=== PATIENT | male | born 2000 | race Caucasian/White ===

== ENCOUNTER → 2020-11-16 | Outpatient (CLI) | payer BC ==
[2020-11-16 18:52] LABS: HCT 47.7 % (39.6-50.0); HGB 15.2 g/dL (13.0-17.0); MCH 25.7 pg (27.0-32.0); MCHC 31.9 g/dL (32.0-37.0); MCV 80.6 fL (80.0-97.0); Mean Platelet Volume 10.7 fL (9.5-12.2); Platelet Count 292 X 10*3/uL (140-440); RBC 5.92 X 10*6/uL (4.40-5.60); RDW 13.1 % (11.5-14.5)
[2020-11-16 21:01] LABS: Erythrocyte Sedimentation Rate 5 mm/Hr (0-15)
[2020-11-16 21:24] LABS: Gliadin AB IgA, Deaminated NEGATIVE (NEGATIVE); Gliadin AB IgA, Unit 4.4 U/mL; Gliadin AB IgG, Deaminated NEGATIVE (NEGATIVE)
[2020-11-17 04:12] LABS: African American GFR (CKD) 150.1 (60.0-200.0); Albumin 4.9 g/dL (3.80-4.90); Albumin/Globulin Ratio 1.63 (1.60-3.17); Anion Gap 16.1 mmol/L (4.00-12.00); BUN/Creat Ratio 16.25 Ratio (12.00-20.00); Calcium 10.2 mg/dL (8.7-10.3); Carbon Dioxide 21.9 mmol/L (21.6-31.8); Non-African American GFR(CKD) 129.5 (60.0-200.0); Potassium 4.4 mmol/L (3.5-5.5); Total Bilirubin 0.4 mg/dL (0.2-1.2); Total Protein 7.9 g/dL (6.2-8.2)
== END | disposition home or self-care (01) ==
LOC: LABWHC1 10:36
PROVIDERS: ATTEND Physician Assistant
DX: R19.4 Change in bowel habit (principal)
CPT/HCPCS: 36415; 80053; 83516; 85027; 85652